=== PATIENT | male | born 1985 ===

== ENCOUNTER 2020-06-26 08:22 | Observation (INO) | payer OTHER ==
--- OUTSIDE RECORDS SUMMARY | 2020-06-26 08:25 | XMS REPORT | Continuity of Care Document ---
:1985 Author Organization [facility] t Address [address] [place] [address] Dr. Hu[address] [place] [address] Care Team Providers Name Role Phone Unavailable Unavailable Unavailable Problems Condition Condition Condition Status Onset Resolution Last Treating Co mments Source Name Details Category Date Date Treatment Clinician Date Autism Autism Problem Active [place] spectrum Spectrum da disorder Disorder [facility] Allergies, Adverse Reactions, Alerts This patient has no known allergies or adverse reactions. Social History Smoking Status Start Date Stop Date Source Never Smoker [facility] Medications Ordered Filled Start Stop Current Ordering Indication Dosage Frequency Signature Comments Components Source Medication Medication Date Date Medication? Clinician (SIG) Name Name aripiprazol aripiprazol No aripiprazo [place] e 30 mg e 30 mg le 30 mg da tabs tabs tabs [facility] aripiprazol aripiprazol No aripiprazo [place] 30 mg e 30 mg le 30 mg da tablet TAKE tablet TAKE tablet [facility] 1/2 TABLET 1/2 TABLET TAKE 1/2 al (15mg) BY (15mg) BY TABLET Hea lth MOUTH TWICE MOUTH TWICE (15mg) BY Outreac DAILY DAILY MOUTH h TWICE Program DAILY fluoxetine fluoxetine No fluoxetine [place] 40 mg 40 mg 40 mg da capsule capsule capsule [facility] p TAKE 1 TAKE 1 TAKE 1 al CAPSULE BY CAPSULE BY CAPSULE BY Health MOUTH IN MOUTH IN MOUTH IN Out reac THE MORNING THE MORNING THE h MORNING Program fluoxetine fluoxetine No fluoxetine [place] hydrochlori hydrochlori hydrochlor da de 40 mg de 40 mg kellie 40 mg [facility] caps caps caps al [facility] Program mupirocin 2 mupirocin 2 No mupirocin [place] % topical % topical 2 % da ointment ointment topical [facility] type copy examiner ointment al [facility] Program Immunizations Ordered Immunization Filled Immunization Date Status Commen ts Source Name Name COVID-19 vaccine, COVID-19 vaccine, 2020-06-02 Completed Deepa vector-nr, rS-Ad26, vector-nr, rS-Ad26, 09:58:24 [facility] PF, 0.5 mL PF, 0.5 mL Outreach Progr am Procedures This patient has no known procedures. Encounters Start End Encounter Admission Attending Care Care Encounter Source Date/Time Date/Time Type Type Clinicians Facility Department ID 2020-06-02 2020-06-02 [facility] [id number] M [facility] 00:00:00 00:00:00 Deepa Paiz MD: [id number] [facility] type copy examiner [place] [address] [facility] [address], [facility] [address] , Ph. 2020-02-25 2020-02-25 [facility] [id number] M [place] 00:00:00 00:00:00 Beti Moore MD: [facility] Epi scop [address] [facility] [id number] Progr am , Ph. [phone] 2019-08-18 [facility] [id number] M [place] 00:00:00 00:00:00 Beti Moore MD: [facility] Epi scop [address] [facility] [id number] Progr am , Ph. [phone] --20072019-05-26 2019-05-26 [facility] [id number] M [place] 00:00:00 00:00:00 Beti Moore MD: [facility] Epi scop [address] [facility] [id number] Progr am , Ph. [phone] 2019-02-17 [facility] [id number] M at[place] 00:00:00 00:00:00 Beti Moore MD: [facility] Epi scop [address] [facility], [facility] [id number] , Ph. [phone] Results This patient has no known results.
[2020-06-26 09:06] LABS: Absolute Lymphocytes (CBC) 0.9 K/uL (0.7-4.9); Basophils % 0.3 % (0-1.3); Hematocrit 38.6 % (39.6-49.0); MPV 8.4 fL (7.6-11.3); RBC Red Blood Cell Count 4.29 M/uL (4.33-5.43)
[2020-06-26] MEDS ORDERED: ACETAMINOPHEN 650MG/RECT SUPP PR ONE (09:06)
[2020-06-26] MEDS ORDERED: NA CHLORIDE 0.9% 2,000 ML ONE (09:08)
[2020-06-26 09:15] LABS: ALT/SGPT 109 U/L (12-78); AST/SGOT 40 U/L (15-37); Albumin 3.9 g/dL (3.4-5.0); Alkaline Phosphatase 49 U/L (45-117); BUN Blood Urea Nitrogen 11 mg/dL (7-18); Bicarbonate 23 mmol/L (21-32); Bilirubin Direct 0.1 mg/dL (0-0.2); Bilirubin Total 0.3 mg/dL (0.2-1.0); Creatine Phosphokinase 76 U/L (39-308); Glucose Level 105 mg/dL (74-106); Lipase 113 U/L (73-393); Potassium 3.7 mmol/L (3.5-5.1); Sodium Level 141 mmol/L (136-145); Troponin (Emerg Dept Use Only) < 0.02 ng/mL (0.0-0.045)
--- NOTE | 2020-06-26 09:33 | RAD REPORT ---
EXAM DESCRIPTION: CT - Abdomen Pelvis W Contrast - 06/26/2020 9:26 am CLINICAL HISTORY: ABD PAIN COMPARISON: Abdomen Exam Complete dated 04/14/2020No comparisons TECHNIQUE: Biphasic, helical CT imaging of the abdomen and pelvis was performed following 100 ml non -ionic IV contrast. No oral contrast administered. All CT scans are performed using dose optimization technique as appropriate and may include automated exposure control or mA/KV adjustment according to patient size. FINDINGS: Partial atelectasis in each posterior gutter. Aspiration pneumonia not suspected. No peric ardial effusion. Liver shows diffuse fatty infiltration with a geographic area of spared parenchyma near the gallbladd er fossa. No focal liver lesions seen. No portal vein abnormality. Pancreas and spleen show no suspic ious findings. Gallbladder and biliary tree are also without suspicious finding. Symmetric renal function is seen with no hydronephrosis or suspicious renal mass. No pyelonephritis o r acute parenchymal process. No bladder abnormalities. No adrenal abnormalities. No dilated bowel loops or bowel wall thickening. Appendix is normal. Moderate stool volume present in the left-side of the colon and mid transverse colon. No free air, free fluid or inflammatory strandi ng. No hernia, mass or bulky lymphadenopathy. No suspicious bony findings. IMPRESSION: Contrast enhanced CT abdomen and pelvis showing no acute or emergent finding. Bilateral lung base atelectasis without evidence for aspiration pneumonia. Fatty infiltration of the liver.
[2020-06-26 09:53] LABS: Urine Blood Trace-intact (Negative); Urine Glucose Negative (Negative); Urine Protein Negative (Negative); Urine Specific Gravity 1.015 (1.005-1.030)
[2020-06-26 09:56] LABS: SARS-COV-2 RT PCR NEGATIVE (NEGATIVE)
[2020-06-26 10:28] LABS: Urine Amorphous Sediment 1+ /HPF (NONE SEEN); Urine Bacteria <20 /HPF (NONE SEEN); Urine RBC <5 /HPF (NONE SEEN)
[2020-06-26] MEDS ORDERED: Levofloxacin 750mg IV 750 MG/150 ML BAG IV ONE (10:56)
--- NOTE | 2020-06-26 11:24 | ER ---
Nurse's Notes [facility] Name: Adelfo Rivera Age: 34 yrs Sex: Male : 1985 Arrival Date: 06/26/2020 Time: 08:28 Bed 24 Private MD: Diagnosis: Fever of other and unknown origin;Supraventricular tachycardia Presentation: 06/26 08:24 Chief complaint: EMS states: called out by mother, she found him on the floor at home. sv On EMS arrival pt was in SVT in the 170s, Adenosine 12mg IVP x 2 given, Versed 2.5 mg IVP given and then pt was cardioverted with 50J and converted to ST in the 130s. BP 122/85 93% RA, placed on O2 \T\ 2L per NC O2 sat up to 96%. Coronavirus screen: Client denies travel out of the [place] in the last 14 days. Ebola Screen: No symptoms or risks identified at this time. Risk Assessment: Do you want to hurt yourself or someone else? Patient reports no desire to harm self or others. Onset of symptoms was June 26, 2020. 08:24 Method Of Arrival: EMS: [facility] sv 08:24 Acuity: JAVIER 2 sv 08:24 Initial Sepsis Screen: Does the patient meet any 2 criteria? HR > 90 bpm. No. Patient's sv initial sepsis screen is negative. Does the patient have a suspected source of infection? No. Patient's initial sepsis screen is negative. Triage Assessment: 08:25 General: Appears in no apparent distress. comfortable, well developed, Behavior is sv calm, cooperative, appropriate for age, drowsy. Pain: Denies pain. Neuro: Level of Consciousness is obeys commands, lethargic, Oriented to person, pt is non-verbal, hx Autism. Pt nods head yes and no appropriately.. Moves all extremities. Full function. Cardiovascular: Rhythm is sinus tachycardia. Respiratory: Airway is patent Respiratory effort is even, unlabored, Respiratory pattern is regular, symmetrical. Derm: Skin is intact, Skin is normal, Skin temperature is hot. Injury Description: Abrasion sustained to left knee is scabbed, was sustained 30-60 minutes ago. Historical: - Allergies: 08:43 No Known Allergies; sv - Home Meds: 08:43 Abilify oral oral [Active]; sv - PMHx: 08:43 Autism; Obsessive compulsive disorder; sv - PSHx: 08:43 None; sv - Immunization history:: Adult Immunizations up to date, Client reports receiving the 1st dose of the Covid vaccine, J\T\J. - Social history:: Smoking status: Patient denies any tobacco usage or history of. - Family history:: not pertinent. - Hospitalizations: : No recent hospitalization is reported. - History obtained from: mother. Screenin:44 Abuse screen: Denies threats or abuse. Denies injuries from another. Nutritional sv screening: No deficits noted. Tuberculosis screening: No symptoms or risk factors identified. Fall Risk None identified. Assessment: 08:45 Reassessment: Patient appears in no apparent distress at this time. No changes from sv previously documented assessment. Patient and/or family updated on plan of care and expected duration. Pain level reassessed. See triage assessment. 09:51 Reassessment: Patient appears in no apparent distress at this time. Patient and/or sv family updated on plan of care and expected duration. Pain level reassessed. 11:20 Reassessment: Patient appears in no apparent distress at this time. No changes from sv previously documented assessment. Patient and/or family updated on plan of care and expected duration. Pain level reassessed. 13:04 Reassessment: Patient appears in no apparent distress at this time. Pt given colors, ss coloring sheet and drink for comfort. Mother needed to run home to gather things for admission. Pt appears in no apparent distress at this time. Eyes closed. Respirations even and unlabored. 14:00 Reassessment: Patient appears in no apparent distress at this time. No changes from sv previously documented assessment. Patient and/or family updated on plan of care and expected duration. Pain level reassessed. 14:39 Reassessment: Dr Cisneros at the bedside. sv Vital Signs: 08:24 BP 133 / 76; Pulse 127; Resp 20; Temp 98.5(O); Pulse Ox 95% ; Weight 68.04 kg; Height 5 sv ft. 3 in. (160.02 cm); Pain 0/10; 08:45 BP 121 / 80; Pulse 123; Resp 18; Pulse Ox 99% on R/A; sv 08:59 Temp 100.1(R); sv 09:51 BP 139 / 96; Pulse 109 MON; Resp 24; Pulse Ox 99% on R/A; sv 10:45 BP 136 / 99; Pulse 105; Resp 17; Pulse Ox 98% ; sv 13:04 BP 157 / 107; Pulse 93; Resp 16; Pulse Ox 98% on R/A; Pain 0/10; ss 08:24 Body Mass Index 26.57 (68.04 kg, 160.02 cm) sv 09:51 Sinus tachycardia sv ED Course: 08:24 Maintain EMS IV. Dressing intact. Good blood return noted. Site clean \T\ dry. Gauge \T\ sv site: 18G L AC, and 22G R AC. 08:25 basket turner on. Pulse ox on. NIBP on. sv 08:28 Patient arrived in ED. hb 08:29 Bertin Bae MD is Attending Physician. rn 08:36 Rosa Anderson RN is Primary Nurse. sv 08:42 Triage completed. sv 08:44 Arm band placed on. sv 08:44 Patient has correct armband on for positive identification. Placed in gown. Bed in low sv position. Call light in reach. Side rails up X2. Adult w/ patient. 08:47 X-ray(s) taken. sv 09:00 Chest Single View XRAY In Process Unspecified. EDMS 09:00 LFT's Sent. sv 09:00 Lactate Sent. sv 09:00 CPK Sent. sv 09:00 CBC with Diff Sent. sv 09:00 Blood Culture Adult (2) Sent. sv 09:00 Basic Metabolic Panel Sent. sv 09:25 CT Abd/Pelvis - IV Contrast Only In Process Unspecified. EDMS 09:51 Awaiting lab results, Awaiting radiology results. Awaiting re-evaluation by ER provider.sv 11:03 Urine Culture Sent. sv 11:22 Pippa Cisneros MD is Hospitalizing Provider. rn 16:02 Report given to Tamara DOTSON. sv Administered Medications: 08:59 Drug: NS 0.9% (30 ml/kg) 30 ml/kg Route: IV; Rate: bolus; Site: left antecubital; sv 08:59 CANCELLED (Physician Discretion): Tylenol 1000 mg PO once sv 08:59 Drug: Tylenol Suppository 650 mg Route: ID; sv 10:37 Follow up: Response: No adverse reaction sv 10:43 Drug: LevaQUIN 750 mg Volume: 150 ml; Route: IVPB; Infused Over: 90 mins; Site: left sv antecubital; Outcome: 11:22 Decision to Hospitalize by Provider. rn 18:21 Patient left the ED. hb Signatures: Dispatcher [employer] Rosa Morrow RN RN sv Bertin Bae MD MD rn Smirch, Shelby, RN RN ss Baxter, Heather, RN RN hb Corrections: (The following items were deleted from the chart) 08:43 08:24 BP 133 / 76; Pulse 127bpm; Resp 20bpm; Pulse Ox 95%; 68.04 kg; Height 5 ft. 3 sv in.; BMI: 26.5; Pain 0/10; sv
--- NOTE | 2020-06-26 11:24 | EDPHYS ---
Physician Documentation [facility] Name: Adelfo Rivera Age: 34 yrs Sex: Male : 1985 Arrival Date: 06/26/2020 Time: 08:28 Bed 24 Private MD: ED Physician Bertin Bae HPI: 06/26 10:20 This 34 yrs old Unknown Male presents to ER via EMS with complaints of Fever. rn 10:20 This 34 yrs old Unknown Male presents to ER via EMS with complaints of Fever, rn tachycardia. 10:20 The patient reports fever, not measured (subjective). Onset: The symptoms/episode rn began/occurred at an unknown time. Modifying factors:. Unable to obtain HPI due to non-verbal. Per EMS and mother, patient non-verbal, found on floor by mother, heard a thump, EMS states was awake, no seizure activity, HR in 170s, SVT, given adenosine x 2 without improvement, then versed and electrical cardioversion converted to sinus tachycardia. Unclear if any sick contacts recently. No known vomiting/diarrhea. Mother reports seems like stomach hurts him. . Historical: - Allergies: 08:43 No Known Allergies; sv - Home Meds: 08:43 Abilify oral oral [Active]; sv - PMHx: 08:43 Autism; Obsessive compulsive disorder; sv - PSHx: 08:43 None; sv - Immunization history:: Adult Immunizations up to date, Client reports receiving the 1st dose of the Covid vaccine, J\T\J. - Social history:: Smoking status: Patient denies any tobacco usage or history of. - Family history:: not pertinent. - Hospitalizations: : No recent hospitalization is reported. - History obtained from: mother. ROS: 10:20 All other systems are negative. rn 10:20 All other systems are negative. 10:20 Unable to obtain ROS due to non-verbal. Exam: 10:20 Constitutional: This is a well developed, well nourished patient who is awake, seems rn sedated Head/Face: Normocephalic, atraumatic. Eyes: Pupils equal round and reactive to light, extra-ocular motions intact. Lids and lashes normal. Conjunctiva and sclera are non-icteric and not injected. Cornea within normal limits. Periorbital areas with no swelling, redness, or edema. ENT: dry MM Neck: Trachea midline, no thyromegaly or masses palpated, and no cervical lymphadenopathy. Supple, full range of motion without nuchal rigidity, or vertebral point tenderness. No Meningismus. Cardiovascular: Tachycardic, regular Respiratory: Mild tachypnea with diminished bilateral breath sounds Abdomen/GI: soft, non-tender Skin: Warm, dry, no cyanosis MS/ Extremity: Pulses equal, no cyanosis. Neuro: Awake, appears sedated, Motor strength 5/5 in all extremities. Sensory grossly intact. Vital Signs: 08:24 BP 133 / 76; Pulse 127; Resp 20; Temp 98.5(O); Pulse Ox 95% ; Weight 68.04 kg; Height 5 sv ft. 3 in. (160.02 cm); Pain 0/10; 08:45 BP 121 / 80; Pulse 123; Resp 18; Pulse Ox 99% on R/A; sv 08:59 Temp 100.1(R); sv 09:51 BP 139 / 96; Pulse 109 MON; Resp 24; Pulse Ox 99% on R/A; sv 10:45 BP 136 / 99; Pulse 105; Resp 17; Pulse Ox 98% ; sv 13:04 BP 157 / 107; Pulse 93; Resp 16; Pulse Ox 98% on R/A; Pain 0/10; ss 08:24 Body Mass Index 26.57 (68.04 kg, 160.02 cm) sv 09:51 Sinus tachycardia sv MDM: 08:29 Patient medically screened. rn 11:18 Differential diagnosis: viral Infection, bacterial infection, URI, bronchitis, rn pneumonia UTI, gastroenteritis. Data reviewed: vital signs, nurses notes, lab test result(s), EKG, radiologic studies, CT scan, plain films, and as a result, I will admit patient. Counseling: I had a detailed discussion with the patient and/or guardian regarding: the historical points, exam findings, and any diagnostic results supporting the discharge/admit diagnosis, lab results, radiology results, the need for further work-up and treatment in the hospital. Response to treatment: the patient's symptoms have markedly improved after treatment, and as a result, I will admit patient. Admission orders: after a detailed discussion of the patient's condition and case, the admit orders are written by me. ED course: Pt with fever of unknown origin, SVT that required cardioversion, elevated lactate, covered with levaquin given bilateral interstitial infiltrates on cxr. CT abd neg. UA neg. COVID and flu neg. Will admit to Dr. Cisneros for further care. . 06/26 08:36 Order name: Urine Culture rn 06/26 08:36 Order name: Basic Metabolic Panel rn 06/26 08:36 Order name: Blood Culture Adult (2) rn 06/26 08:36 Order name: CBC with Diff rn 06/26 08:36 Order name: CPK rn 06/26 08:36 Order name: Lactate rn 06/26 08:36 Order name: LFT's rn 06/26 08:36 Order name: Lipase; Complete Time: 10:10 rn 06/26 08:36 Order name: Procalcitonin; Complete Time: 10:10 rn 06/26 08:36 Order name: Troponin (emerg Dept Use Only); Complete Time: 10:10 06/26 08:36 Order name: Urine Microscopic Only; Complete Time: 11:10 rn 06/26 08:37 Order name: Strep; Complete Time: 10:10 06/26 08:37 Order name: Urine Culture [facility] 06/26 08:37 Order name: Basic Metabolic Panel; Complete Time: 10:10 [facility] 06/26 08:37 Order name: Blood Culture [facility] 06/26 08:37 Order name: CBC with Automated Diff; Complete Time: 09:07 [facility] 06/26 08:37 Order name: Creatine Phosphokinase; Complete Time: 10:10 [facility] 06/26 08:37 Order name: Lactate; Complete Time: 10: [facility] 06/26 08:37 Order name: Liver (Hepatic) Function; Complete Time: 10:10 [facility] 06/26 08:48 Order name: Glucose, Ancillary Testing; Complete Time: 09:07 [facility] 06/26 09:52 Order name: Urine Dipstick-Ancillary; Complete Time: 10:10 [facility] 06/26 09:56 Order name: COVID-19/FLU A+B; Complete Time: 10: [facility] 06/26 11:18 Order name: Throat Culture [facility] 06/26 13:51 Order name: Basic Metabolic Panel [facility] 06/26 13:51 Order name: Basic Metabolic Panel [facility] 06/26 13:51 Order name: T4 Free [facility] 06/26 13:51 Order name: CBC with Automated Diff [facility] 06/26 13:51 Order name: CBC with Automated Diff [facility] 06/26 08:36 Order name: Chest Single View XRAY; Complete Time: 12:53 rn 06/26 08:36 Order name: Accucheck; Complete Time: 08:45 rn 06/26 08:36 Order name: Cardiac monitoring; Complete Time: 08:45 rn 06/26 08:36 Order name: EKG - Nurse/Tech; Complete Time: 08:45 rn 06/26 08:36 Order name: IV Saline Lock - Large Bore; Complete Time: 08:45 rn 06/26 08:36 Order name: Labs collected and sent; Complete Time: 08:45 rn 06/26 08:36 Order name: O2 Per Protocol; Complete Time: 08:45 rn 06/26 08:36 Order name: O2 Sat Monitoring; Complete Time: 08:45 rn 06/26 08:36 Order name: Urine Dipstick-Ancillary (obtain specimen); Complete Time: 11:02 rn 06/26 08:36 Order name: CT Abd/Pelvis - IV Contrast Only; Complete Time: 10:10 rn 06/26 12:42 Order name: Diet Regular; Complete Time: 12:42 ss 06/26 13:51 Order name: CONS Physician Consult [facility] 06/26 13:51 Order name: Heart Healthy [facility] 06/26 13:51 Order name: EKG Electrocardiogram [facility] 06/26 13:51 Order name: EKG Electrocardiogram [facility] 06/26 13:51 Order name: T4 Free [facility] 06/26 13:51 Order name: Thyroid Stimulating Hormone [facility] 06/26 13:51 Order name: Thyroid Stimulating Hormone [facility] 06/26 13:51 Order name: Troponin I [facility] 06/26 13:51 Order name: Troponin I [facility] 06/26 13:51 Order name: Troponin I [facility] 06/26 15:02 Order name: Lactate Sepsis 2 HR Follow-up EDMS Administered Medications: 08:59 Drug: NS 0.9% (30 ml/kg) 30 ml/kg Route: IV; Rate: bolus; Site: left antecubital; sv 08:59 CANCELLED (Physician Discretion): Tylenol 1000 mg PO once sv 08:59 Drug: Tylenol Suppository 650 mg Route: DC; sv 10:37 Follow up: Response: No adverse reaction sv 10:43 Drug: LevaQUIN 750 mg Volume: 150 ml; Route: IVPB; Infused Over: 90 mins; Site: left sv antecubital; Disposition: 06/26/20 11:22 Hospitalization ordered by Pippa Cisneros for Observation. Preliminary diagnosis are Fever of other and unknown origin, Supraventricular tachycardia. - Bed requested for Telemetry/MedSurg (observation). - Status is Observation. hb - Condition is Stable. - Problem is new. - Symptoms have improved. Signatures: Dispatcher [employer] EDMS Rosa Anderson RN RN sv Woody, Diana, RN RN dw Nieto, Roman, MD MD rn Baxter, Heather, RN RN hb Corrections: (The following items were deleted from the chart) 08:59 08:36 Tylenol 1000 mg PO once ordered. rn sv 09:12 08:37 CORONAVIRUS+MR.LAB.BRZ ordered. EDMS EDMS 09:12 08:37 Influenza Screen (A \T\ B)+BA.LAB.BRZ ordered. EDMS EDMS 10:24 10:20 Constitutional: This is a well developed, well nourished patient who is awake, rn seems sedated Head/Face: Normocephalic, atraumatic. Eyes: Pupils equal round and reactive to light, extra-ocular motions intact. Lids and lashes normal. Conjunctiva and sclera are non-icteric and not injected. Cornea within normal limits. Periorbital areas with no swelling, redness, or edema. ENT: dry MM Cardiovascular: Tachycardic, regular Respiratory: Mild tachypnea with diminished bilateral breath sounds Abdomen/GI: soft, non-tender Skin: Warm, dry, no cyanosis MS/ Extremity: Pulses equal, no cyanosis. Neuro: Awake, appears sedated, Motor strength 5/5 in all extremities. Sensory grossly intact. rn 14:29 11:22 Hospitalization Ordered by Pippa Cisneros MD for Observation. Preliminary dw diagnosis is Fever of other and unknown origin; Supraventricular tachycardia. Bed requested for Telemetry/MedSurg (observation). Status is Observation. Condition is Stable. Problem is new. Symptoms have improved. rn 14:33 14:29 06/26/2020 11:22 Hospitalization Ordered by Pippa Cisneros MD for Observation. dw Preliminary diagnosis is Fever of other and unknown origin; Supraventricular tachycardia. Bed requested for Telemetry/MedSurg (observation). Status is Observation. Condition is Stable. Problem is new. Symptoms have improved. dw 16:22 14:33 06/26/2020 11:22 Hospitalization Ordered by Pippa Cisneros MD for Observation. dw Preliminary diagnosis is Fever of other and unknown origin; Supraventricular tachycardia. Bed requested for [facility] HOLD. Status is Observation. Condition is Stable. Problem is new. Symptoms have improved. dw 18:21 16:22 06/26/2020 11:22 Hospitalization Ordered by Pippa Cisneros MD for Observation. hb Preliminary diagnosis is Fever of other and unknown origin; Supraventricular tachycardia. Bed requested for Telemetry/MedSurg (observation). Status is Observation. Condition is Stable. Problem is new. Symptoms have improved. dw
--- NOTE | 2020-06-26 12:24 | RAD REPORT ---
EXAM DESCRIPTION: RAD - Chest Single View - 06/26/2020 9:00 am CLINICAL HISTORY: FEVER COMPARISON: None TECHNIQUE: AP portable chest image was obtained 06/26/2020 9:00 am . FINDINGS: Lung volumes are low accentuating heart, vasculature and lung markings. No dense consolida tion seen. Retrocardiac base is more limited in evaluation. Viral infiltrate is certainly possible. T he accentuated lung markings due to low lung volumes could mask interstitial infiltrate. No failure o r volume overload suspected. Trachea is midline. Heart and vasculature are normal. No measurable pleu ral effusion and no pneumothorax. No acute bony abnormality seen. No acute aortic findings suspected. IMPRESSION: No focal consolidation confirmed to localize a bacterial pneumonia. Low lung volumes accentuate interstitial opacification. A viral infiltrate cannot be excluded.
[2020-06-26] MEDS ORDERED: MORPHINE 4 MG/ML SYR IV PRN (13:46)
[2020-06-26] MEDS ORDERED: ACETAMINOPHEN 500 MG TAB PO PRN (13:46)
[2020-06-26] MEDS ORDERED: METOPROLOL TARTRATE 5 MG/5 ML INJ IV PRN (13:46)
[2020-06-26 16:52] VITALS: O2SAT 99
[2020-06-26] MEDS ORDERED: METOPROLOL TAR 50 MG TAB PO SCH (18:00)
[2020-06-26 18:21] VITALS: BMI 27.7
[2020-06-26] MEDS: METOPROLOL TAR 50 MG TAB PO SCH (19:18)
[2020-06-26] MEDS: CEFTRIAXONE/SWI 1gm 1 GM/10 ML SYR IVP SCH (21:07)
[2020-06-26] MEDS: ALPRAZOLAM 0.25 MG TABLET PO PRN (22:24)
[2020-06-27] MEDS ORDERED: LORazepam 2 MG/ML VIAL IV ONE (03:15)
[2020-06-27] MEDS: METOPROLOL TAR 50 MG TAB PO SCH (05:43)
[2020-06-27] MEDS: ALPRAZOLAM 0.25 MG TABLET PO PRN (05:44)
[2020-06-27 05:59] LABS: Absolute Lymphocytes (CBC) 1.7 K/uL (0.7-4.9); Basophils % 0.2 % (0-1.3); Hematocrit 42.5 % (39.6-49.0); Lymphocytes % 16.8 % (15.3-44.8); MPV 8.7 fL (7.6-11.3)
[2020-06-27 06:25] LABS: BUN Blood Urea Nitrogen 10 mg/dL (7-18); Bicarbonate 23 mmol/L (21-32); Glucose Level 93 mg/dL (74-106); Potassium 3.6 mmol/L (3.5-5.1); Sodium Level 140 mmol/L (136-145); Troponin I < 0.02 ng/mL (0.0-0.045)
[2020-06-27 08:47] VITALS: BP 127/78; TEMP 98.7
[2020-06-27] MEDS ORDERED: ENOXAPARIN 40 MG/0.4 ML SQ SCH (09:00)
[2020-06-27] MEDS: CEFTRIAXONE/SWI 1gm 1 GM/10 ML SYR IVP SCH (09:00)
[2020-06-27] MEDS ORDERED: FLUOXETINE 20 MG CAP PO SCH (09:00)
[2020-06-27] MEDS ORDERED: ARIPiprazole 5 MG TAB PO SCH (09:00)
--- NOTE | 2020-06-27 11:16 | P.HP ---
Certification for Inpatient Patient admitted to: Observation With expected LOS: <2 Midnights Patient will require the following post-hospital care: None Practitioner: I am a practitioner with admitting privileges, knowledge of patient current condition, hospital course, and medical plan of care. Services: Services provided to patient in accordance with Admission requirements found in Title 42 Section 412.3 of the Code of Federal Regulations Patient History Date of Service: 06/26/20 Reason for admission: SVT History of Present Illness: Patient is a 34-year-old gentlemen who came into the hospital would tachyarrhythmia. Patient was not behavior like himself and appear to be confused. Patient also was having some fevers. Patient was brought into the hospital and found to have SVT. Patient was given Beta eveline therapy and patient was also given electrical cardioversion. Patient went into a sinus tachycardia. Patient was admitted to the hospital and started on beta eveline therapy along with IV fluids. Patient will be admitted for observation. Allergies No Known Allergies Allergy (Unverified 06/26/20 17:02) Home Medications: Aripiprazole [Abilify] 0.5 tab PO BID 06/26/20 Fluoxetine HCl [Prozac] 40 mg PO DAILY 06/26/20 Metoprolol Tartrate [Lopressor*] 50 mg PO BID 6AM 6PM #60 tab 06/27/20 - Past Medical/Surgical History Has patient received pneumonia vaccine in the past: No -: Autism -: Obsessive compulsive disorder - Family History Father Family History: Reviewed- Non-Contributory - Social History Smoking Status: Never smoker Alcohol use: No CD- Drugs: No Place of Residence: Home Review of Systems 10-point ROS is otherwise unremarkable (10 point review of system is otherwise unremarkable) Physical Examination - Vital Signs Temperature: 98.7 F Blood Pressure: 127/78 Pulse: 79 Respirations: 16 Pulse Ox (%): 94 - Physical Exam General: Alert, In no apparent distress, Oriented x3 HEENT: Atraumatic, PERRLA, Mucous membr. moist/pink, EOMI, Sclerae nonicteric Neck: Supple, 2+ carotid pulse no bruit, No LAD, Without JVD or thyroid abnormality Respiratory: Clear to auscultation bilaterally, Normal air movement Cardiovascular: Regular rate/rhythm, Normal S1 S2, No murmurs Gastrointestinal: Normal bowel sounds, Soft and benign, Non-distended, No tend erness Musculoskeletal: No clubbing, No tenderness Integumentary: No rashes Neurological: Normal gait, Normal speech, Normal strength at 5/5 x4 extr, Normal tone, Sensation intact, Cranial nerves 3-12 intact, Normal affect Lymphatics: No axilla or inguinal lymphadenopathy - Studies Microbiology Data (last 24 hrs): 06/26/20 09:00 Throat Group A Streptococcus Rapid Screen - Final Assessment & Plan - Problems (Diagnosis) (1) SVT (supraventricular tachycardia) Status: Acute (2) Mental disability Status: Acute - Plan PLAN: 1. Will continue medications for rate control and anticoagulation 2. Continue with strict blood pressure control 3. Echocardiogram 4. Cardiology consultation 5. Repeat chest x-ray 6. GI and DVT prophylaxis Discharge Plan: Home Plan to discharge in: 24 Hours - Advance Directives Does patient have a Living Will: No Does patient have a Durable POA for Healthcare: Yes - Code Status/Comfort Care Code Status Assessed: Yes Code Status: Full Code Critical Care: No Time Spent Managing PTS Care (In Minutes): 45
--- NOTE | 2020-06-28 07:19 | EKG ---
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
--- NOTE | 2020-06-30 19:33 | P.DS ---
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 Patient was not behavior like himself and appear to be confused. Patient also was having some fevers. Patient was brought into the hospital and found to have SVT. Patient was given Beta eveline therapy and patient was also given electrical cardioversion. Patient went into a sinus tachycardia. Patient was admitted to the hospital and started on beta eveline therapy along with IV fluids. Patient will be admitted for observation. Hospital Course: Patient had done well during hospital stay. Patient is in a normal sinus rhythm. Continue with medication for rate control. At this time, patient will be discharged back to home with family. He lives in a halfway and since patient is doing well & afebrile he is stable to return. Vital Signs/Physical Exam: Temp Pulse Resp BP Pulse Ox 98.7 F 79 16 127/78 94 06/30/20 19:29 06/30/20 19:29 06/30/20 19:29 06/30/20 19:29 06/30/20 19:29 General: Alert, In no apparent distress, Oriented x3 Laboratory Data at Discharge: WBC 9.90 K/uL (4.3-10.9) D 06/27/20 05:25 Hgb 14.3 g/dL (13.6-17.9) 06/27/20 05:25 Hct 42.5 % (39.6-49.0) 06/27/20 05:25 Plt Count 242 K/uL (152-406) 06/27/20 05:25 Sodium 140 mmol/L (136-145) 06/27/20 05:25 Potassium 3.6 mmol/L (3.5-5.1) 06/27/20 05:25 BUN 10 mg/dL (7-18) 06/27/20 05:25 Creatinine 0.70 mg/dL (0.55-1.3) 06/27/20 05:25 Glucose 93 mg/dL (74-106) 06/27/20 05:25 Total Bilirubin 0.3 mg/dL (0.2-1.0) 06/26/20 08:41 AST 40 U/L (15-37) H 06/26/20 08:41 ALT 109 U/L (12-78) H 06/26/20 08:41 Alkaline Phosphatase 49 U/L (45-117) 06/26/20 08:41 Troponin I < 0.02 ng/mL (0.0-0.045) 06/27/20 05:25 Lipase 113 U/L (73-393) 06/26/20 08:41 Home Medications: Aripiprazole [Abilify] 0.5 tab PO BID 06/26/20 Fluoxetine HCl [Prozac] 40 mg PO DAILY 06/26/20 Metoprolol Tartrate [Lopressor*] 50 mg PO BID 6AM 6PM #60 tab 06/27/20 New Medications: Metoprolol Tartrate [Lopressor*] 50 mg PO BID 6AM 6PM #60 tab Physician Discharge Instructions: OK TO DC IV AND DC HOME FOLLOW-UP WITH PRIMARY CARE PROVIDER IN 1-2 WEEKS FOLLOW-UP WITH CARDIOLOGY IN 1-2 WEEKS RETURN TO THE ER IF symptoms worsen CALL or TEXT DR. MAYER AT [phone] IF ANY QUESTIONS REGARDING HOSPITAL STAY. PLEASE CALL THE FLOOR AT [phone] IF ANY MEDICATION OR NURSING QUESTIONS. Diet: AHA Activity: Fall precautions Followup: Josep Childs MD [ACTIVE - CAN ADMIT] - NAOMI SALGADO [Primary Care Provider] - Time spent managing pt's care (in minutes): 35
== END 2020-06-27 11:37 | disposition home or self-care (01) ==
LOC: ER 08:22 → INTOOBSV 14:10 → ERHOLD 14:10 → 2ND 18:09
PROVIDERS: ADMIT Hospitalist; ATTEND Hospitalist
DX: R50.9 Fever, unspecified (principal); Z20.822 Contact with and (suspected) exposure to COVID-19; F84.0 Autistic disorder; F42.9 Obsessive-compulsive disorder, unspecified
CPT/HCPCS: 93005; 87040 ×2; 87070; 87088; 85025 ×2; 87086; 80048 ×2; 36415; 82550; 82947; 80076; 87081; 83605 ×2; 84443; 84484 ×3; 84439; 83690; 84145; 0240U; 74177; 71045; 96375; 96374; 99284; Q9967; J0696; J7030; 81003; 81015; G0378; J1650